=== PATIENT | female | born 1965 | race Native Hawaiian/Other Pacific Islander ===

== ENCOUNTER 2016-11-02 14:17 | Emergency (ER) | payer OTHER ==
[~2016-11-02] VITALS: Ht 157.5 cm; Wt 90.7 kg
[~2016-11-02 14:17] MED LIST: AMBIEN5 MG PO; ASPIR-8181 MG PO; BUPROPN HCL300 MG PO; CLON1TAB18 PO; FIORICET/CODEIN1 CAP PO; HYDR5TAB9 PO; LEXAPRO20 MG PO; MULTIVITAMI1 PO; SAPHRIS10 MG SL; SIMV40TA57 PO; SOMA350 MG PO
[2016-11-02 14:39] LABS: PLATELET COUNT 253 K/uL (152-353)
[2016-11-02 14:49] LABS: POTASSIUM 3.5 mmol/L (3.6-5.2)
[2016-11-02 16:00] VITALS: BP 124/83; TEMP 98.4
== END 2016-11-02 16:04 | disposition home or self-care (01) ==
LOC: ED 14:17
DX: R56.9 Unspecified convulsions (principal)
CPT/HCPCS: 36415; 80053; 80164; 80307; 81000; 82542; 85027; 96374; 99284; G0479; J2060

== ENCOUNTER 2017-01-27 08:20 | Outpatient (CLI) | payer OTHER | END 2017-01-27 10:00 | disposition home or self-care (01) | LOC: MRI 08:20 | DX: M54.16 Radiculopathy, lumbar region (principal) ==

== ENCOUNTER 2017-02-21 07:39 | Outpatient (CLI) | payer OTHER | END 2017-02-21 19:24 | disposition home or self-care (01) | LOC: RESP 07:39 | DX: G40.209 Localization-related (focal) (partial) symptomatic epilepsy and epileptic syndromes with complex partial seizures, not intractable, without status epilepticus (principal) ==

== ENCOUNTER 2017-02-25 09:55 | Outpatient (CLI) | payer OTHER | END 2017-02-25 19:13 | disposition home or self-care (01) | LOC: MRI 09:55 | DX: Z12.31 Encounter for screening mammogram for malignant neoplasm of breast (principal); Z13.820 Encounter for screening for osteoporosis; G40.209 Localization-related (focal) (partial) symptomatic epilepsy and epileptic syndromes with complex partial seizures, not intractable, without status epilepticus | CPT/HCPCS: 36415; 82565; 84520; A9576; G0202-TC ==

== ENCOUNTER 2017-04-30 18:57 | Emergency (ER) | payer OTHER ==
[~2017-04-30] VITALS: Ht 157.5 cm; Wt 99.8 kg
[2017-04-30 19:08] VITALS: TEMP 97.9
[2017-04-30 19:55] LABS: PLATELET COUNT 187 K/uL (152-353)
[2017-04-30 19:56] LABS: POTASSIUM 3.8 mmol/L (3.6-5.2)
[2017-04-30 23:36] VITALS: BP 103/67
== END 2017-04-30 23:38 | disposition home or self-care (01) ==
LOC: ED 18:57
DX: R60.9 Edema, unspecified (principal)
CPT/HCPCS: 80053; 85027; 85379; 96372; 99284; J1650

== ENCOUNTER 2017-06-16 09:24 | Outpatient (CLI) | payer OTHER | END 2017-06-16 19:06 | disposition home or self-care (01) | LOC: RAD 09:24 | DX: M25.571 Pain in right ankle and joints of right foot (principal) ==

== ENCOUNTER 2017-07-22 14:11 | Outpatient (CLI) | payer OTHER ==
[2017-07-22 14:31] LABS: PLATELET COUNT 220 K/uL (152-353)
[2017-07-22 14:59] LABS: POTASSIUM 3.5 mmol/L (3.6-5.2)
== END 2017-07-22 19:00 | disposition home or self-care (01) ==
LOC: LABW 14:11
PROVIDERS: Physician Assistant
DX: I10 Essential (primary) hypertension (principal); E78.00 Pure hypercholesterolemia, unspecified; Z01.818 Encounter for other preprocedural examination
CPT/HCPCS: 36415; 80053; 84439; 84443; 85027; 93005

== ENCOUNTER 2017-12-15 09:46 | Outpatient (CLI) | payer OTHER | END 2017-12-15 23:29 | disposition home or self-care (01) | LOC: MAMMO 09:46 | DX: R92.2 Inconclusive mammogram (principal) ==

== ENCOUNTER 2018-01-24 07:04 | Outpatient (CLI) | payer OTHER ==
[2018-01-24 07:49] LABS: PLATELET COUNT 191 K/uL (152-353)
[2018-01-24 08:41] LABS: POTASSIUM 3.8 mmol/L (3.6-5.2)
[2018-01-25] MEDS ORDERED: ROWEEPRA500 MG PO (00:46)
[2018-01-25] MEDS ORDERED: METOPROLOL25 M1 PO (00:47)
[2018-01-25] MEDS ORDERED: DULO60CA2 PO (00:47)
[2018-01-25] MEDS ORDERED: TOPI100T PO (00:47)
== END 2018-01-24 19:58 | disposition home or self-care (01) ==
LOC: LABW 07:04
PROVIDERS: Physician Assistant
DX: I10 Essential (primary) hypertension (principal); E78.00 Pure hypercholesterolemia, unspecified
CPT/HCPCS: 36415; 80053; 80061; 82306; 83036; 84439; 84443; 85027

== ENCOUNTER 2018-01-25 00:23 | Emergency (ER) | payer OTHER ==
[~2018-01-25] VITALS: Ht 157.5 cm; Wt 98.4 kg
[2018-01-25] MEDS ORDERED: ROWEEPRA500 MG PO (00:46)
[2018-01-25] MEDS ORDERED: METOPROLOL25 M1 PO (00:47)
[2018-01-25] MEDS ORDERED: DULO60CA2 PO (00:47)
[2018-01-25] MEDS ORDERED: TOPI100T PO (00:47)
[2018-01-25 02:12] VITALS: BP 113/79; TEMP 98.4
== END 2018-01-25 02:12 | disposition home or self-care (01) ==
LOC: ED 00:23
DX: R05 Cough (principal); R06.2 Wheezing
CPT/HCPCS: 94664; 96372; 99283; J1885

== ENCOUNTER 2018-08-16 14:27 | Outpatient (CLI) | payer OTHER ==
[~2018-08-16 14:27] MED LIST changes: +DULO60CA2 PO; +METOPROLOL25 M1 PO; +ROWEEPRA500 MG PO; +TOPI100T PO
== END 2018-08-16 19:37 | disposition home or self-care (01) ==
LOC: RAD 14:27
DX: J01.00 Acute maxillary sinusitis, unspecified (principal)

== ENCOUNTER 2018-11-15 08:59 | Day surgery (SDC) | payer OTHER ==
[~2018-11-15] VITALS: Ht 33 cm; Wt 0.5 kg
== END 2018-11-15 14:27 | disposition home or self-care (01) ==
LOC: OR 08:59
PROC: 0DJD8ZZ Inspection of Lower Intestinal Tract, Via Natural or Artificial Opening Endoscopic (ICD-10-PCS; principal; 2018-11-15)
DX: K57.30 Diverticulosis of large intestine without perforation or abscess without bleeding (principal); K64.8 Other hemorrhoids; Z12.11 Encounter for screening for malignant neoplasm of colon
CPT/HCPCS: J1885; J2001; J2250; J2405; J2704

== ENCOUNTER 2023-02-21 19:24 | Emergency (ER) | payer OTHER, BC ==
[~2023-02-21] VITALS: Ht 154.9 cm; Wt 103.1 kg
[~2023-02-21 19:24] MED LIST changes: +ALBUTEROL108 MCG/AC INH; +ALLO300T23 PO; +ASA LOW DOSE81 MG PO; -ASPIR-8181 MG PO; +ELIQUIS5 MG PO; +GABA300C2 PO; +LIPITOR40 MG PO; +LORA1TAB17 PO; +NITROFURANTOIN100 M1 PO; +PALIPERIDONE ER9 MG PO; +PANTOPRAZOLE 40MG TA PO; +TOPAMAX200 MG PO; +TRAZ100T PO
[2023-02-21 23:34] VITALS: BP 108/66
== END 2023-02-21 23:34 | disposition home or self-care (01) ==
LOC: ED 19:24
DX: F41.9 Anxiety disorder, unspecified (principal); F43.10 Post-traumatic stress disorder, unspecified; F31.9 Bipolar disorder, unspecified; F32.A Depression, unspecified
CPT/HCPCS: 96372; 99282; J2060